=== PATIENT | female | born 1995 | race Caucasian/White ===

== ENCOUNTER 2022-03-21 15:29 | Emergency (ER) | payer BC, OTHER ==
[~2022-03-21] VITALS: Ht 170.2 cm; Wt 86.4 kg
[~2022-03-21 15:29] MED LIST: MULT-785 PO; NORG1TAB41 PO
[2022-03-21] MEDS ORDERED: ondansetron/PF 4mg/2ml inj IV ONE (15:40)
[2022-03-21] MEDS ORDERED: ketorolac trometh. 30mg/ml inj. IV ONE (15:40)
[2022-03-21] MEDS: dexamethasone sod phosphate 10mg/ml inj IV STA ×2 (15:40→18:16)
[2022-03-21] MEDS ORDERED: acetaminophen 325mg tablet PO STA (15:40)
[2022-03-21] MEDS ORDERED: normal saline 1000ML IV soln IV ONE (15:40)
[2022-03-21 16:03] VITALS: BP 134/83
--- NOTE | 2022-03-21 17:52 | NUR ---
po med given
[2022-03-21] MEDS ORDERED: ONDA4TAB12 PO (18:48)
--- NOTE | 2022-03-21 19:29 | NUR ---
iv dc pt being discharged. dressing applied
== END 2022-03-21 19:31 | disposition home or self-care (01) ==
LOC: ER 15:29
DX: J10.1 Influenza due to other identified influenza virus with other respiratory manifestations (principal); Z20.822 Contact with and (suspected) exposure to COVID-19; R50.9 Fever, unspecified; R51.9 Headache, unspecified; R11.0 Nausea; R53.1 Weakness; Z72.89 Other problems related to lifestyle; Z79.899 Other long term (current) drug therapy
CPT/HCPCS: 87502; 87503; 87635; 96361; 96374; 96375; 99284; C9803; J1100; J1885; J2405; J7030